=== PATIENT | male | born 1965 | race Caucasian/White ===

== ENCOUNTER 2021-11-04 12:19 | Inpatient (IN) | payer OTHER ==
[~2021-11-04] VITALS: Ht 182.9 cm; Wt 199.6 kg
--- NOTE | 2021-11-04 15:16 | NUR ---
PATIENT COVID TESTED AT [facility] ON 11/04/21 PRIOR TO DISCHARGE WITH NEGATIVE RESULT.
[2021-11-04 21:20] VITALS: BP 136/79
--- NOTE | 2021-11-05 01:08 | NUR ---
PATIENT ARRIVED ON FLOOR AT 2049 OF 11/04, VIA W/C WITH TRANSPORT PERSONEL. PATIENT APPEARED WITH FLAT AFFECT. MAXIMUM ASSIST OF 2 WITH PIVOT TRANSFER FROM W/C TO BED, USING GB. PATIENT IS A&OX2, REORIENTED TO SITUATION AND TIME. PATIENT WAS ABLE TO SAY HE WAS IN THE HOSPITAL AND GIVE HIS DATE OF . ADMISSION ASSESSMENT WAS PERFORMED USING MOSTLY YES OR NO QUESTION, WHERE PATIENT REPLIED WITH A NOD OR GRUNT, AND INTERMITTENTLY HE WAS ABLE TO ANSWER QUESTIONS WITH ONE WORD RESPONSES OR JUST REFUSED TO ANSWER CERTAIN QUESTIONS. DYSARTHIA AND POSSIBLE RECEPTIVE APHASIA NOTED. ASSESSMENT WAS COMPLETED ACCORDING TO QUESTION PATIENT WAS WILLING TO ANSWER, AND THROUGH MEDICAL NOTES FROM [facility]. EDUCATION RIPSAW OPERATOR LIGHT USAGE AND FALL PRECAUTION PROVIDED. PATIENT HAS BEEN CALLING BUT UNABLE TO EXPRESS HIS NEED FOR ASSISTANCE, AND REQUIRES CUING TO BE ABLE TO SAY WHAT HE NEEDS. PROVIDED WITH HONEY THICKENED LIQUIDS TO DRINK, CUED TO CLEAR THROAT AFTER DRINKING, TOLERATED ORAL MEDS CRUSHED IN APPLE SAUCE. ASSISTED WITH REPOSITIONING. REDNESS NOTED IN UPPER RIGHT ARM, ABOVE AC, POSSIBLE PIV COMPLICATION. RIGHT KNEE NOTED TO HAVE 3 SCRAPES, AND LEFT KNEE SMALL SCABBED OVER AREAS. IMAGES OF BOTH KNEES OBTAIN AND PLACED IN CHART. SCD'S APPLIED BILATERALLY. FALL PRECAUTIONS IN PLACE, CALL LIGHT WITHIN REACH. WILL CONTINUE TO MONITOR.
[2021-11-05 06:15] LABS: HEMATOCRIT 38.4 % (42.0-52.0); HEMOGLOBIN 13.1 gm/dL (14.0-18.0); MCH 30.6 pg (26.0-34.0); MCHC 34.1 g/dL (28.0-37.0); MCV 89.8 fL (80.0-100.0); RBC 4.28 mil/uL (4.50-6.00); RDW 13.4 % (10.5-14.5)
[2021-11-05 06:47] LABS: ALBUMIN 3.2 g/dL (3.4-5.0); CALCIUM 8.5 mg/dL (8.5-10.1); CREATININE 0.8 mg/dL (0.7-1.3); POTASSIUM 3.5 mmol/L (3.5-5.1); TOTAL BILIRUBIN 0.3 mg/dL (0.2-1.0); TOTAL PROTEIN 6.4 g/dL (6.4-8.2)
[2021-11-05 07:07] LABS: FOLIC ACID 18.4 ng/mL (8.6-58.9)
[2021-11-05 07:15] VITALS: BP 132/71
[2021-11-05 12:58] LABS: CHOLESTEROL 121 mg/dL (<200); HDL CHOLESTEROL 34 mg/dL (>40); LDL CHOLESTEROL 70 mg/dL (<100); TC:HDL 3.6 Ratio (Not establshd); TRIGLYCERIDE 87 mg/dL (<150); VLDL 17 mg/dL (<40)
--- NOTE | 2021-11-05 13:28 | NUR ---
Nutrition: pt admitted with clinical CVA, dysphagia, right sided weakness, expressive aphasia. Consult received stating poor intake. Pt able to answer yes/no questions. Good appetite voiced, consumed 100% of meal today. ST has placed pt on Pureed with honey thick liquids. Both ensure pudding and magic cup ordered. Current weight (440#) appears inaccurate and RN will obtain new weight today. Pt voiced no recent changes. Folate/B12 WNL. Vitamin D pending. Consider low nutrition risk at present.
--- NOTE | 2021-11-05 13:39 | NUR ---
Team meeting, recommendation: cont. therapy. Diet was downgraded while working with speech therapy. He grunts. Difficulty talking. Gave him step by step was to what is going to happen. Gets agitated with staff. Had MRI today for stroke work up. Reteam next week.
--- NOTE | 2021-11-05 19:30 | NUR ---
ASSUMED CARE OF PT AT 0700. PT A&OX2. PT INCONTINENT OF B&B. PT IS ASPHASIC AND ONLY ANSERS YES/NO OR GRUNTS.
[2021-11-05 22:22] VITALS: BP 151/65
--- NOTE | 2021-11-05 23:47 | NUR ---
ALERT WITH APHASIA. RESPONDS TO SOME YES/NO QUESTIONS. PT TAKES MEDS CRUSHED IN APPLESAUCE. PT DENIES PAIN OR DISCOMFORT. BED ALARM ON FOR SAFETY. PT AWAKE ON HOURLY ROUNDS.
[2021-11-06 02:06] LABS: GLYCOHEMOGLOBIN (HGB A1C) 5.8 % (4.8-5.6)
[2021-11-06 08:05] VITALS: BP 131/77
[2021-11-06 19:57] VITALS: BP 124/57
--- NOTE | 2021-11-07 00:12 | NUR ---
PT ALERT, APHASIC. INCONT OF URINE AND STOOL. PT TAKES MEDS CRUSHED IN APPLESAUCE WITHOUT DIFFICULTY. PT DENIES PAIN OR DISCOMFORT. BED ALARM ON FOR SAFETY. PT AWAKE ON HOURLY ROUNDS.
--- NOTE | 2021-11-07 10:00 | NUR ---
PT WORKING WITH THERAPY THIS AM. PT UNABLE TO CARRY ON A CONVERSATION. PT GRUNTS AND DOES SAY ONE WORD SUCH THANK YOU, APPLE FOR JUICE, YES, OK. PT UP TO W/C THIS AM AND TOLERATED HAVING MED PLACED IN APPLESAUCE, PT TOLERATING HONEY THICK LIQUIDS. PT UP X1 MAX ASSIST.
[2021-11-07 10:35] VITALS: BP 135/59
[2021-11-07 20:00] VITALS: BP 139/80
--- NOTE | 2021-11-08 03:35 | NUR ---
assumed care approx 0 evening 11/07. pt lying in bed awake, aphasic. pt incontinent of bowel and bladder. changed pt at hs. pt given hs meds crushed with applesauce tolerating well. bed alarm on and call light in reach. will continue to monitor.
[2021-11-08 07:14] VITALS: BP 132/76
--- NOTE | 2021-11-08 16:13 | NUR ---
ASSUMED CARE OF THIS PATIENT AT 0700. PATIENT A&O X 4. PATIENT PLEASANT AND COOPERATIVE. PATIENT EXPERIENCED MORE FORMED AND SOLID BOWEL MOVEMENT THIS MORNING. PATIENT AMBULATING WELL WITH GAIT BELT AND WALKER TO TOILET. PATIENT ABLE TO DRESS AND GROOM HERSELF SAFELY. IV ACCESS AT LEFT FOREARM BY IV TEAM THIS AFTERNOON FOR MAGNESIUM SULFATE ONE TIME ADMINISTRATION. PATIENT WISHES TO NOT DRINK CHOCOLATE ENSURE D/T DIARHHEA. PATIENT VOICED CONCERN ABOUT MEATS BEING CUT IN ORDER TO EAT EFFIENTLY.
--- NOTE | 2021-11-08 16:18 | NUR ---
ASSUMED CARE OF THIS PATIENT AT 0700. PATIENT PLEASANT AND COOPERATIVE. PATIENT ATE WELL MEALS THIS DAY. PATIENT ENJOYS MEDICATIONS CRUSHED WITH APPLESAUCE.
--- NOTE | 2021-11-08 23:02 | NUR ---
PT ALERT, APHASIC. INCONT OF URINE. PT TAKES MEDS IN APPLESAUCE WITHOUT DIFFICULTY. PT DENIES PAIN OR DISCOMFORT. BED ALARM ON FOR SAFETY. PT CHECKED ON HOURLY ROUNDS.
[2021-11-09 08:41] VITALS: BP 95/69
[2021-11-09 16:00] LABS: URINE BILIRUBIN NEGATIVE (Negative); URINE BLOOD NEGATIVE (Negative); URINE CLARITY CLEAR; URINE COLOR YELLOW; URINE GLUCOSE-RANDOM* NEGATIVE (Negative); URINE KETONES NEGATIVE (Negative); URINE LEUKOCYTES NEGATIVE (Negative); URINE NITRITE NEGATIVE (Negative); URINE PROTEIN (DIPSTICK) NEGATIVE (Negative); URINE SPECIFIC GRAVITY 1.025 (1.005-1.035); URINE UROBILINOGEN 0.2 E.U./dl (0.2-1.0)
--- NOTE | 2021-11-09 16:13 | NUR ---
THIS NURSE ASSUMED CARE FOR THIS PATIENT AT 0700. UA COMPLETED. TEST OF UA NEGATIVE. PATIENT GRUNTS WHEN FRUSTRATED WHILE MOVING. FAMILY MEMBER BY BEDSIDE TO TRIM MUSTACHE. PATIENT ENJOYED HT LIQUIDS: TEA, LEMON WATER, AND APPLE JUICE. THIS NURSE TRYING TO INCREASE HYDRATION.
[2021-11-09 20:09] VITALS: BP 123/73
--- NOTE | 2021-11-10 04:42 | NUR ---
patient aox1 forgetful. patient has a left cva. patient need maximum assistance with adl, bed mobility, transfer and toileting. patient incontient pericare and barrier cream applied as needed. patient turned q [address] precaution in place. patient in bed asleep at this time breathing regular and unlaboured.
[2021-11-10 08:00] VITALS: BP 127/80
--- NOTE | 2021-11-10 15:00 | NUR ---
THIS NURSE ASSUMED CARE OF PATIENT AT 0700. PATIENT CONTINUES PROGRESSING THROUGH THERAPIES TO INCREASE ENDURANCE AND TO GET STRONGER. PATIENT IS INCREASING IN USING WORDS THROUGH OUT SHIFT. PATIENT IS INCREASING HYDRATION THROUGH DRINKING MORE HONEY-THICKENED LIQUIDS, ESPECIALLY APPLE JUICE. PATIENT IS INCREASING CONTINENCY BY ASKING FOR BED AGUSTIN AND KNOWING WHEN BRIEF IS WET. PATIENT IS ON ROOM AIR, HAS NO IV, AND HAS NO PAIN.
[2021-11-10 19:00] VITALS: BP 147/92
--- NOTE | 2021-11-11 03:16 | NUR ---
ASSUMED PT CARE AT 1900.PT ALERT WITH EXPREESVE APHASIA AND DYSPHAGIA.NO S/S OF PAIN NOTED SO FAR.PT INCONT OF B&B,MIGUEL CARE WITH EACH INCONT.PT REPSOTIONED WHILE IN BED.MEDS CRUSHED IN APPLESAUCE,PT RINA WELL.PT NOTED TO GRUNT WHEN HE IS AGITATED.PT SLEEPING ON HIS BED AT THIS TIME,CALL LIGHT WITHIN REACH.
[2021-11-11 06:08] LABS: ABSOLUTE NEUTROPHILS 5.6 thou/uL (1.4-8.2); BASOPHILS 0.9 % (0.0-2.0); EOSINOPHILS 1.8 % (0.0-3.0); HEMATOCRIT 39.3 % (42.0-52.0); HEMOGLOBIN 13.2 gm/dL (14.0-18.0); MCH 30.2 pg (26.0-34.0); MCHC 33.5 g/dL (28.0-37.0); MCV 90.2 fL (80.0-100.0); MONOCYTES 8.6 % (1.0-8.0); PLATELET COUNT 276 thou/uL (150-400); POLYS 69.7 % (36.0-66.0); RBC 4.35 mil/uL (4.50-6.00); RDW 13.5 % (10.5-14.5); WBC 8.1 thou/uL (4.0-11.0)
[2021-11-11 06:29] LABS: CALCIUM 8.7 mg/dL (8.5-10.1); CREATININE 0.8 mg/dL (0.7-1.3); MAGNESIUM 2.1 mg/dL (1.8-2.4); POTASSIUM 4.4 mmol/L (3.5-5.1)
[2021-11-11 08:00] VITALS: BP 119/73
--- NOTE | 2021-11-11 14:47 | NUR ---
PT REMAINS MOSTLY NON-VERBAL, BUT DID HEAR HIM SAYING SINGLE WORD RESPONSES ON THE PHONE TO HIS GF. WAS COMPLIANT WITH MEDICATIONS. CONTINUES WITH MEDS CRUSHED IN APPLESAUCE AND HONEY THICK LIQUIDS. BOTTOM REMAINS RED. MIGUEL-CARE PROVIDED AND CREAMS APPLIED. PT TURNED Q 2 HOURS ORDERED. DENIES PAIN OR DISCOMFORT.
[2021-11-11 19:42] VITALS: BP 136/79
--- NOTE | 2021-11-12 00:51 | NUR ---
PT ALERT, APHASIC. INCONT OF URINE. PT TAKES MEDS CRUSHED IN APPLESAUCE WITHOUT DIFFICULTY. PT DENIES PAIN OR DISCOMFORT. BED ALARM ON FOR SAFETY. PT APPEARS TO BE SLEEPING ON HOURLY ROUNDS.
--- NOTE | 2021-11-12 07:23 | NUR ---
Nutrition: At follow up pt continues with good po intake; 100% most meals and 100% recent supplements, per chart. No current wt since admit; recommend nsg obtain/chart current wt. Albumin 3.2, mildly low. Ergocalciferol, statin, bisacodyl, senna and other meds reviewd. Last BM 11/10. Continues at low nutrition risk, continue POC.
[2021-11-12 08:00] VITALS: BP 124/70
--- NOTE | 2021-11-12 13:11 | HC ---
[facility] [place] [address] CONSULTATION Name: TENNILLE ADKINS Room #: 504-1 ADM IN M.R.#: [id number] Admission: 11/04/21 Attend Phys: Cliff Syed MD Discharge: Date of : 63 Report #: [id number] THIS REPORT FOR: cc: ALEX - Family physician unknown FAM - Family physician unknown Jacky Murray PhD ~ DATE OF SERVICE: 11/08/2021 NEUROBEHAVIORAL STATUS EXAM AGE: 56. ATTENDING PHYSICIAN: Cliff Syed MD CLOTH WASHER BACK TENDER: Jacky Murray, PhD CLINICAL PRESENTATION: The patient is a 56-year-old male admitted to the rehabilitation unit at [facility] for a comprehensive inpatient rehabilitation program to improve functional mobility and activities of daily living and self-care secondary to deficits from a cerebrovascular accident. He was initially admitted to the hospital and diagnosed with a cerebrovascular accident associated with ischemic changes in the left hemisphere. He carries a medical problem list that includes COPD, hypertension, status post stroke with expressive aphasia and a left temporal Broca's area CVA. Initially, a CT of the head revealed diffuse white matter hypoattenuation, likely associated with chronic small vessel disease and superimposed acute infarction. Clinical concern of a CVA led to his admission and an MRI was recommended. He was eventually diagnosed with an expressive aphasia, dysphagia and left-sided weakness. A complete description of his medical condition and history can be found in his medical record. Neuropsychological consultation was requested to provide assistance in the assessment of cognitive and emotional status and provide recommendations and services. Prior to this most recent admission, the patient is reported to have been living independently in his own home. He reports having a tenth grade education and having no children. However, the accuracy of his historical information is uncertain as a result of diminished comprehension and difficulty with verbal expression. Further discussion with significant other is necessary to clarify his prior level of functioning. TECHNIQUES UTILIZED: Clinical interview, review of medical records, staff consultation and behavioral observation, subtest with mini mental status exam 2 standard version. EXAMINATION FINDINGS: The patient was cooperative with the interview. He was able to accurately indicate that having had a stroke is his main reason for [facility] [address] [address] CONSULTATION Name: TENNILLE ADKINS Room #: 504-1 ADM IN [facility].#: [id number] Admission: 11/04/21 Attend Phys: Cliff Syed MD Discharge: Date of : 63 Report #: [id number] hospitalization. Auditory comprehension was variable. He indicates feelings of depression and anxiety. He does not report difficulty with sleep or appetite. He acknowledges impairment in expressive speech. He has an extended delay in processing speed. His performance on the MMSE 2 brief version was extremely low with a raw score of 7/16. He was 3/3 with initial registration. However, repetition was necessary. He was 3/5 for orientation to time, 1/[address] and 0/3 for immediate recall of 3 items after a brief time delay and distraction. Performance on the MMSE 2 standard version with a raw score of 7/30, which is extremely low. The patient was 1/5 for serial sevens, 2/2 for naming. He had variable ability to demonstrate repetition, he was 3/3 for auditory comprehension. The patient was unable to follow a written command, but could follow a single verbal command. He presents with an apraxia and was unable to copy a simple geometric design or write a sentence. The patient is presenting with a severe aphasia. Speech therapy notes indicate a moderate to severe level of deficit in comprehension and expression, severe deficits in memory and cognition. 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 Caregivers will be necessary for him to maintain safety upon discharge. Family will need to be involved in learning methods of communication as well as providing 24-hour assistance in the management of medication, finances and nutrition. Approximately 90 days post-stroke, a followup and neuropsychological assessment can help clarify the extent of neurocognitive deficits. Thank you very much for allowing me to provide the consultation on this patient. <ELECTRONICALLY SIGNED> By: Jacky Murray, PhD 11/12/21 [id number] [id number] Jacky Murray, PhD /nt
--- NOTE | 2021-11-12 15:37 | NUR ---
Team meeting, recommendation reteam next week with an anticipated discharge on 11/27/21. home health, possible will need fww at discharge. Will need assist with medication and finances related to mod to severe memory and cognition deficits.
--- NOTE | 2021-11-12 17:45 | NUR ---
PT ALERT, SHAKES HEAD YES AND NO WHEN ASKED QUESTIONS, GIVES THUMBS UP AND APPRORIATELY ANSWERS YES AND NO QUESTIONS. FEEDING SELF WITH SET UP ASSIST. FALL PRECAUTIONS MAINTAINED, TRANSFERED FROM CHAIR TO BED WITHOUT DIFFICULTY.
--- NOTE | 2021-11-13 02:00 | NUR ---
PT ASSESSMENT COMPLETED AND VSS. MEDS GIVEN ORDERED AND WELL TOLERATED. FALL PRECAUTIONS IN PLACE. PT WAS ABLE TO PULL HIS OWN PANTS DOWN IN BED AND ASST WITH TURNS. PILLOWS USED FOR TURNS TO KEEP PT OFF OF BOTTOM. BARRIER CREAM APPLIED TO BOTTOM WITH TURNS. PT DENIES PAIN AND APPEARS COMFORTABLE. INC OF LARGE AMOUNTS OF URINE. SLEEPING WELL AT THIS TIME. WILL CONTINUE TO MONITOR FREQUENTLY.
[2021-11-13 07:18] VITALS: BP 115/64
--- NOTE | 2021-11-13 08:48 | NUR ---
Nutrition: RD charted in error on 2 under "post discharge" category for nutrition followup. Next followup due 11/19.
[2021-11-13 21:18] VITALS: BP 125/71
--- NOTE | 2021-11-14 06:30 | NUR ---
patient alert and oriented, able to verbalize needs at times. patient needs maximum assistance iwth bed mobility, transfer, toileting and transfer. patient incontient this shift pericare and barrier cream applied as needed. patient encouraged fluids. fall precaution in place. patient in bed asleep at this time breathing regular and unlaboured.
[2021-11-14 08:00] VITALS: BP 104/64
--- NOTE | 2021-11-14 09:37 | NUR ---
PT UP WITH THERAPY VIA WALKER AND W/C. PT GRUNTS AND ALSO CAN SAY ONE WORD SENTANCES. PT TOOK MEDS THIS AM CRUSHED IN APPLESAUCE. PT WAS ABLE TO TAKE METOPROLOL WHOLE IN APPLESAUCE. PT TOLERATING HONEY THICK LIQUIDS.
--- NOTE | 2021-11-14 18:15 | NUR ---
PT UP TO CHAIR FOR DINNER. PT TOLERATING DIET. PT ABLE TO FEED AND DRINK ON OWN. PT UP X1 ASSIST TO W/C.
[2021-11-14 20:49] VITALS: BP 116/61
--- NOTE | 2021-11-15 02:17 | NUR ---
ASSUMED CARE AT 1915 OF 11/14. PATIENT IS ALERT AND APHASIC, RESPONDING WITH SINGLE WORDS AND YES OR NO QUESTION WITH NODS AND GRUNTS. TOLERATED ORAL MEDS CRUSHED IN APPLE SAUCE. INCONTINENT OF BLADDER, MIGUEL CARE PROVIDED AND BARRIER CREAM APPLIED. PATIENT IS ENCOURAGED TO USE CALL LIGHT WHEN NEEDING ASSISTANCE. ASSISTED WITH REPOSITIONING. FALL PRECAUTIONS IN PLACE, CALL LIGHT WITHIN REACH. WILL CONTINUE TO MONITOR.
[2021-11-15 07:28] VITALS: BP 105/58
--- NOTE | 2021-11-15 09:15 | NUR ---
PT ASSISTED TO CHAIR THIS AM FOR BREAKFAST. PT WAS INCON. OF URINE. PT GRUNTING WITH MOVEMENT AND ALSO PT SHIRT NEEDED CHANGED, PT GRUNTED WITH THE SHIRT CHANGE. PT WEAKER TO RT SIDE TO LE. PT LUNGS CLEAR. PT TOOK MEDS CRUSHED IN APPLESAUCE WITHOUT ANY ISSUES. PT DOESN'T LIKE TO SIT UP VERY LONG WITH MEALS. PT HAS ABRASION TO LEFT BUTT CHEEK, BARRIER CREAM APPLIED.
--- NOTE | 2021-11-15 18:00 | NUR ---
PT CHANGED DUE TO INCON. PT DIDN'T LIKE TO TURN TO LEFT SIDE, PT WAS BATTING AT NURSE HAND WHEN TURNING. PT NOT USING URINAL. PT WAS LAUGHING WITH FAMILY AND WATCHING FOOTBALL GAME.
[2021-11-15 19:31] VITALS: BP 125/72
--- NOTE | 2021-11-16 03:47 | NUR ---
ASSUMED CARE AT 1915 OF 11/15. PATIENT IS ALERT AND APHASIC. RESPONDS WITH SINGLE WORDS ONLY. DENIES PAIN OR SHORTNESS OF BREATH. PRN LAXITIVE AND STOOL SOFTNER ADMINISTERED DUE TO PATIENT NOT HAVING A BM FOR A COUPLE DAYS. BOWEL SOUNDS ARE PRESENT IN ALL 4 QUANDRANTS, ABDOMEN LOOKS DISTENDED BUT REMAINS SOFT. ASSISTED WITH REPOSITIONING. FALL PRECAUTIONS IN PLACE, CALL LIGHT WITHIN REACH. WILL CONTINUE TO MONITOR.
[2021-11-16 08:00] VITALS: BP 104/54
--- NOTE | 2021-11-16 18:54 | NUR ---
PT ARRIVED TO FLOOR APPROX 1630. PT A&OX4 WITH FORGETFULLNESS. PT STATES SHE HAD A PHONE MANAGER CONTINUOUS IMPROVEMENT THIS NURSE CANNOT FIND IT. THIS NURSE CALLED DOWN TO 4TH FLOOR AND ROBSON STATED SHE COULD NOT FIND IT.
[2021-11-16 19:10] VITALS: BP 141/82
--- NOTE | 2021-11-16 23:54 | NUR ---
PT ALERT, APHASIC. PT TAKES MEDS CRUSHED IN APPLESAUCE WITHOUT DIFFICULTY. PT INCONT OF URINE. PT DENIES PAIN OR DISCOMFORT. BED ALARM ON FOR SAFETY. PT APPEARS TO BE SLEEPING ON HOURLY ROUNDS.
[2021-11-17 08:00] VITALS: BP 125/75
--- NOTE | 2021-11-17 16:48 | NUR ---
ASSUMED PATIENT CARE THIS AM AT 0700. PATIENT DIFFICULT TO UNDERSTAND IS ABLE TO RESPOND WITH YES AND NO ANSWERS. PATIENT DENIED PAIN OR ANY OTHER COMPLAINTS. PATIENT HAD 1 BOWEL MOVEMENT WHILE WORKING WITH THERAPY.
[2021-11-17 19:19] VITALS: BP 127/70
[2021-11-18 08:00] VITALS: BP 117/75
--- NOTE | 2021-11-18 09:01 | NUR ---
PT WORKING WITH THERAPY AND IS GRUNTING WITH THERAPY. PT CAN BE COMBATIVE WITH STAFF. PT HAD AN INCON. LOOSE STOOL. PT HAS BRIEF CHANGE AND PUT INTO W/C. PT WEAKER TO RT SIDE. PT WAS ABLE TO ASSIST WITH GETTING ON BRIEF PANTS BY LIFTING HIS HIPS AND ALSO PULLING UP BRIEF. PT SEEMS FRUSTRATED WITH CARES. PT WAS TAKEN TO NURSES DESK AFTER GETTING UP TO W/C AND EATING BREAKFAST. PT LIKES TO GO BACK TO BED AFTER EATING.
--- NOTE | 2021-11-18 10:47 | NUR ---
VERONICA BRANCH CALLED AND STATED THAT HE IS NATURALY A LAZY PERSON FOR THE WHOLE TIME SHE HAS BEEN WITH HIM. SHE STATED HE LIKES HIS NAPS TOO MUCH. SHE SAID HE EITHER LIKES TO LAY DOWN OR REST IN A RECLINER AND SHE HAS TO GET ONTO HIM TO GET UP AT HOME.
[2021-11-18 19:15] VITALS: BP 131/70
[2021-11-19 02:40] LABS: BASOPHILS 0.9 % (0.0-2.0); EOSINOPHILS 1.8 % (0.0-3.0); HEMATOCRIT 39.6 % (42.0-52.0); HEMOGLOBIN 13.1 gm/dL (14.0-18.0); LYMPHOCYTES 26.9 % (24.0-44.0); MCH 30.2 pg (26.0-34.0); MCHC 33.1 g/dL (28.0-37.0); MCV 91.1 fL (80.0-100.0); MONOCYTES 9.6 % (1.0-8.0); PLATELET COUNT 294 thou/uL (150-400); POLYS 60.8 % (36.0-66.0); RBC 4.34 mil/uL (4.50-6.00); RDW 13.5 % (10.5-14.5); WBC 6.5 thou/uL (4.0-11.0)
--- NOTE | 2021-11-19 02:49 | NUR ---
Pt been resting in no acute distress.Pt a/ox2.with flat affect.Pt has expressive aphasia but follows commands approrriately and voiceS needs when prompted.Staff assist with toileting and bed repositioning.Right sided weakness noted,h/o cva with residual deficit.Pt denies any concerns at this time.VSS .Assessment completed as documented.Pt progressing fairly towards discharge goals.
[2021-11-19 04:01] LABS: CALCIUM 8.5 mg/dL (8.5-10.1); CREATININE 0.9 mg/dL (0.7-1.3); MAGNESIUM 2.3 mg/dL (1.8-2.4); POTASSIUM 4.3 mmol/L (3.5-5.1)
[2021-11-19 07:30] VITALS: BP 126/71
--- NOTE | 2021-11-19 13:44 | NUR ---
Followup: pt continues on rehab unit dx Left CVA followed by ST for Pureed, honey thick liquid diet need. Eating 100% of meals and has ensure pudding/magic cup ordered of which he also eats 100%. BMI 59.8, extreme class 3 obesity. Supplements not needed-will D/C. No weight since 11/04. Vitamin D deficiency-on supplement. On bowel regimen. 11/18 BM. Low nutrition risk.
--- NOTE | 2021-11-19 14:15 | NUR ---
Team meeting, recommendation, he will need / supervision related cognition and memory deficits and difficulty voicing his needs. will require , assist with medication and finances. Dc 11/27. Need to see if his girlfriend is able to assist him at home.
--- NOTE | 2021-11-19 17:12 | NUR ---
PT REMAINS NON-VERBAL FOR THE MOST PART. DOES RESPOND OCCASIONALLY WITH ONE WORD RESPONSES. CONTINUES TO GRUNT, BUT IS ABLE TO MAKE NEEDS KNOWN. TAKES MEDS CRUSHED IN APPLESAUCE WITH HONEY THICK LIQUIDS. HAS REMAINED CONTINENT OF B/B. DENIES PAIN THIS SHIFT.
[2021-11-19 20:30] VITALS: BP 133/76
--- NOTE | 2021-11-20 02:57 | NUR ---
assumed care approx 0 evening 11/19. pt lying in bed with head of bed elevated at change of shift. pt incontinent of urine and changed brief at hs. pt took hs meds crushed with applesauce. pt aphasic, sometimes grunting out. pt appears to be sleeping soundly. bed alarm on and call light in reach. will continue to monitor.
[2021-11-20 07:39] VITALS: BP 121/72
--- NOTE | 2021-11-20 13:12 | NUR ---
Eldon spoke with rosa Suazo via phone call, passed on information from yesterdays team meet and dc date of 11/27/21. Gabriele or her older son will be at home with him all the time, she is concerned that they have 15 stairs at home, they are on the top duplex and unable to move to home with lesser stairs until January 2022 per Gabriele. Patient will possible need a ride home related to the broken down vehicle and he will need someone to help him up the 15 steps. He is currently doing 4 steps with therapy here on acute rehab. Education on home health. That is fine but he will refuse it, if he is not able to rest little at home before the therapy starts and i will be able to assist with his medication and already do the finances per Gabriele. Eldon passed on information to physical therapy that Gabriele has some question and about the 15 stairs at home. Will continue following as needed.
--- NOTE | 2021-11-20 14:39 | NUR ---
PT NOTED TO HAVE POOR SAFETY AWARENESS. IS ABLE TO MAKE NEEDS KNOWN. HAS BEEN MED COMPLIANT. DENIES PAIN OR DISCOMFORT.
[2021-11-20 19:40] VITALS: BP 134/79
--- NOTE | 2021-11-21 01:37 | NUR ---
assumed care approx 1900 evening 11/20. pt lying in bed at change of shift, incontinent of urine and changed brief. pt took hs meds crushed in applesauce. pt appears to be sleeping soundly. bed alarm on and call light in reach. will continue to monitor.
[2021-11-21 08:00] VITALS: BP 125/76
--- NOTE | 2021-11-21 15:40 | NUR ---
PT REMAINS IRRITABLE AT TIMES. IMPROVING AT BEING ABLE TO MAKE NEEDS KNOWN. MEDICATION COMPLIANT. DENIES PAIN OR DISCOMFORT.
[2021-11-21 19:25] VITALS: BP 108/63
[2021-11-22 07:45] VITALS: BP 105/65
--- NOTE | 2021-11-22 15:13 | NUR ---
ASSUMED CARE OF PATIENT AT 0700. PATIENT ALERT BUT NONVERBAL WITH STAFF AT THIS TIME. ON RA, MEDS TAKEN CRUSHED IN APPLESUACE. LATULOSE GIVEN. PATIENT ON A PUREED DIET WITH HONEY THICKEN LIQUIDS. UP TO BR WITH THE ASSISTANCE OF ONE PLUS GB AND WALKER. WORKED WITH PT TODAY AND WALKED IN THE DIAZ. PATIENT PROGRESSING TOWARD POC.
[2021-11-22 18:20] VITALS: BP 143/84
[2021-11-23 07:48] VITALS: BP 125/66
[2021-11-23 19:11] VITALS: BP 128/73
--- NOTE | 2021-11-24 02:05 | NUR ---
assumed care approx 1900 evening 11/23. pt lying in bed at change of shift resting. pt aphasic and pt grunts at times. pt took hs meds crushed with applesauce tolerating well. pt appears to be sleeping soundly. bed alarm on and call light in reach. will continue to monitor.
[2021-11-24 08:00] VITALS: BP 114/66
--- NOTE | 2021-11-24 11:46 | NUR ---
CONFIRMATION OF PATIENT REMAINING AT [facility] SENT REQUESTED TO [facility] BY FAX THIS DATE AT .
--- NOTE | 2021-11-24 13:54 | NUR ---
ASSUMED CARE AT SHIFT CHANGE. PT ALERT, ORIENTED TO SELF AND SITUATION. PT HAS EXPRESSIVE APHASIA BUT CAN COMMUNICATE WITH SIMPLE RESPONSES. ALSO GETS FRUSTRATED WITH COMMUNICATION DIFFICULTIES AND WILL GRUNT OR GROWL. PT DIET ADVANCED TO MECHANICAL CHOPPED TODAY PER SPEECH, TOLERATED WELL THUS FAR. PT DENIES PAIN. MACIEJ PUMP ON BED AND REPOSITIONED FREQUENTLY. HAS HAD SEVERAL LOOSE STOOLS, BLAIR-NURSING ASSISTANTS TEACHER UPDATED AND LACTULOSE CHANGED TO PRN. PT WORKED WITH THERAPY WITH [facility]. PROGRESSING TOWARDS POC GOALS. PLAN TO DC HOME TUESDAY.
--- NOTE | 2021-11-24 16:32 | NUR ---
Per physical therapy patient is up to doing 8 steps with HR, Choice for dme provided. anyone per his sig other Gabriele during last 11/20/21 phone call. provider plus will deliver fww prior to dc on 11/27/21 [facility] ( pt, ot, st and nursing). He will need ride home that can help him into the home related to the car being currently broken down.
[2021-11-24 19:22] VITALS: BP 122/76
--- NOTE | 2021-11-25 04:07 | NUR ---
PT BEEN RESTING IN NO ACUTE DISTRESS.A/O X1-2.VSS STABLE.S/P CVA, WITH EXPRESSIVE APHASIA,FOLLOWS COMMANDS APPROPRIATELY AND RESPONDS APPROPRIATELY TO SIMPLE COMMANDS.YES/NO COMMANDS,SOMETIMES GRUNTS.STAFF ASSIST WITH INCONTINENCE.DISCHARGE PLANNED TO HOME ON TUESDAY WITH HH,PT/OT/ST.PT PROGRESSING FAIRLY TO DISCHARGE GOALS
[2021-11-25 09:18] VITALS: BP 120/72
--- NOTE | 2021-11-25 10:16 | NUR ---
Nutrition followup: diet upgraded from pureed to mech soft, still requires honey thick liquids and is consuming 100% of most meals. 11/24 BM. On bowel regimen. Vitamin D. Responds to yes/no questions, occasionally grunts. Last weight 11/04. Planned D/C 11/27. Low nutrition risk.
--- NOTE | 2021-11-25 11:52 | NUR ---
PATIENT IS ALERT, AND ORIENTED X 1-2, HAS EXPRESSIVE APHASIA, NOT ABLE TO COMMUNICATE NEED APPROPRIATELY, BUT ABLE TO RESPOND WITH SIMPLE RESPONSES OF YES OR NO. HE GETS FRUSTRATED WHEN UNABLE TO VOICE NEED ADEQUATELY. LCTA, RESP EVEN/UNLABORED, NO SOA/CYANOSIS NOTED. BS+X4, ABD SOFT, NON-TENDER TO TOUCH. PATIENT TOOK CRUSHABLE MEDICATION CRUSHED IN APPLE SOURCE, WELL TOLERATED. PATIENT IS EATING MEALS, AND DRINKING HONEY THICK LIQUID WELL, COUGHS INTERMITTENTLY WHILE DRINKING, ASPIRATION PRECAUTION OBSERVED. PATIENT TOLERATING THERAPY WELL. PATIENT HAD BOWEL MOVEMENT THIS MORNING PER OT STAFF. NO SIGN OF ACUTE DISTRESS NOTED AT THIS TIME, CALL LIGHT IN REACH, WILL CONTINUE TO MONITOR.
--- NOTE | 2021-11-25 15:48 | NUR ---
All parties anticipating dc Monday 11/27. Cm to vouch cab ride for him and his gf. Jyothi James to issue a rwalker prior to dc Tuesday am and [facility] can accept but will need orders faxed on Tuesday.
[2021-11-25 15:50] VITALS: BP 120/72
[2021-11-25 19:32] VITALS: BP 126/66
--- NOTE | 2021-11-26 00:29 | NUR ---
PT ALERT, APHASIC. RESPONDS TO SOME QUESTIONS WITH YES OR NO. DID SAY THANK YOU AFTER TAKING HIS MEDS. PT TAKES MEDS CRUSHED IN APPLESAUCE WITHOUT DIFFICULTY. PT DENIES PAIN OR DISCOMFORT. BED ALARM ON FOR SAFETY. PT APPEARS TO BE SLEEPING ON HOURLY ROUNDS.
--- NOTE | 2021-11-26 15:32 | NUR ---
Team meeting, recommendations: Moderate to severe memory and cognition deficits. Dc 11/27 with [facility] horton ( pt, ot, st, and nursing). Provider plus will deliver fww prior to dc tomorrow. Sig other will get a ride here for family training and they ztrip will take both of them home. patient is up to 15 steps with handrail x 1. ztrip form giving to bedside nurse, trip # [id number]. CM visited with patient at bedside and he nodded his head up and down for yes.
--- NOTE | 2021-11-26 16:01 | NUR ---
PT REMAINS APHASIC ALTHOUGH HAS BEEN COMMUNICATING MORE WITH WORDS TODAY. HAS BEEN COMPLIANT WITH MEDICATIONS. HELD AM METOPROLOL D/T BP BEING BELOW PARAMETERS. DIET AND LIQUIDS CONSISTENCY CHANGED TODAY AFTER SPEECH SWALLOWING EVAL DONE. DENIES PAIN OR DISCOMFORT.
[2021-11-26 19:12] VITALS: BP 139/74
--- NOTE | 2021-11-26 23:52 | NUR ---
PT ALERT, APHASIC. PT TAKES MEDS CRUSHED IN APPLESAUCE WITHOUT DIFFICULTY. INCONT OF URINE. PT DENIES PAIN OR DISCOMFORT. BED ALARM ON FOR SAFETY. PT APPEARS TO BE SLEEPING ON HOURLY ROUNDS.
[2021-11-27 07:29] VITALS: BP 142/65
[2021-11-27 08:11] VITALS: BP 142/65
[2021-11-27] MEDS ORDERED: VITAMIN D250 MC1 PO (08:40)
[2021-11-27] MEDS ORDERED: LIPITOR 20 MG T20 M1 PO (08:40)
[2021-11-27] MEDS ORDERED: BAYER CHEWABLE81 MG PO (08:40)
[2021-11-27] MEDS ORDERED: TOPROL XL25 MG PO (08:40)
--- NOTE | 2021-11-27 12:02 | NUR ---
[facility] orders faxed and confirmed with [facility]. Unit RN has called a cab for the ride home and packed up his belongings including his mother's bible and his new FWW. His girlfriend could not get a ride here but is at the home awaiting his arrival so she can help him out of the cab and into the home. The unit Rn as well as jerad has spoken with her several times.
--- NOTE | 2021-11-27 13:10 | NUR ---
DISCHARGE INSTRUCTIONS REVIEWED WITH PT'S SIGNIFICANT OTHER, JOSE CARLOS, VIA PHONE. JOSE CARLOS VERBALIZED UNDERSTANDING. PT'S BELONGINGS AND A COPY OF DC INSTRUCTIONS SENT WITH PT. PT ESCORTED TO [facility] VIA W/C BY STAFF. ASSISTED GETTING PT INTO [facility] AND BELONGINGS SECURED. INSTRUCTIONS GIVEN TO MACHINE HOSTLER. PT DISCHARGED HOME IN STABLE CONDITION.
== END 2021-11-27 13:15 | disposition home health service (06) | DRG 56 ==
PROVIDERS: Nurse Practitioner; Nurse Practitioner Family; ADMIT Physical Medicine & Rehabilitation; ATTEND Physical Medicine & Rehabilitation
DX: G81.91 Hemiplegia, unspecified affecting right dominant side (principal); I63.9 Cerebral infarction, unspecified; R47.01 Aphasia; J44.9 Chronic obstructive pulmonary disease, unspecified; I10 Essential (primary) hypertension; E78.5 Hyperlipidemia, unspecified; E55.9 Vitamin D deficiency, unspecified; R13.10 Dysphagia, unspecified; F01.50 Vascular dementia, unspecified severity, without behavioral disturbance, psychotic disturbance, mood disturbance, and anxiety; F12.90 Cannabis use, unspecified, uncomplicated; F32.9 Major depressive disorder, single episode, unspecified
CPT/HCPCS: 10112